=== PATIENT | male | born 1960 | race Caucasian/White ===

== ENCOUNTER 2022-01-12 12:16 | Outpatient (CLI) | payer OTHER | END 2022-01-12 12:17 | disposition home or self-care (01) | LOC: CSHRAD 12:16 | PROVIDERS: ATTEND Nurse Practitioner Adult Health | DX: M25.571 Pain in right ankle and joints of right foot (principal); Z87.81 Personal history of (healed) traumatic fracture; Z98.890 Other specified postprocedural states; Z96.698 Presence of other orthopedic joint implants; M19.071 Primary osteoarthritis, right ankle and foot ==